=== PATIENT | male | born 1965 | race African-American/Black ===

== ENCOUNTER 2018-03-07 07:46 | Emergency (ER) | payer OTHER ==
[~2018-03-07] VITALS: Ht 177.8 cm; Wt 86.2 kg
[2018-03-07 07:50] VITALS: BP 132/94
[2018-03-07 09:01] VITALS: BP 132/94
== END 2018-03-07 09:00 | disposition home or self-care (01) ==
LOC: MED 07:46
DX: M79.642 Pain in left hand (principal); I10 Essential (primary) hypertension; F41.9 Anxiety disorder, unspecified; Z76.0 Encounter for issue of repeat prescription
CPT/HCPCS: 99283

== ENCOUNTER 2018-11-07 23:28 | Emergency (ER) | payer OTHER ==
[~2018-11-07] VITALS: Ht 177.8 cm; Wt 83.9 kg
--- NOTE | 2018-11-07 23:28 | NUR ---
PT [facility]. TAKEN TO BED 6
[2018-11-07 23:31] VITALS: BP 118/75
--- NOTE | 2018-11-07 23:35 | NUR ---
52/M PRESENTS TO ER AMBULATORY. AWAKE ALERT. C/O HEADACHE X3 DAYS NON PROVOKED PAIN 10/25. STATES HE GETS THEM OFTEN. HASN'T HAD ANYTHING TO EAT TODAY. DENIES TRUAMA INJURY, NO BLURRY VISION. NO N/V. HX OF ANXIETY, HTN, NEUROPATHY. RX LISINOPRIL 20, LORAZAPAM, GABAPENTIN, KEFLEX. EYES EQUAL AND REACTIVE. NO SIGS OF DISTRESS. WILL CONTINUE TO MONITOR.
--- NOTE | 2018-11-07 23:38 | NUR ---
Dr. Dawkins examining patient.
[2018-11-07] MEDS ORDERED: KETOROLAC 60 MG/2 ML VIAL IM ONE (23:45)
[2018-11-08 01:15] VITALS: BP 118/75
--- NOTE | 2018-11-08 01:15 | NUR ---
Patient discharged with v/s stable. Written and verbal after care instructions given and explained. Patient alert, oriented and verbalized understanding of instructions. Ambulatory with steady gait. All questions addressed prior to discharge. ID band removed. Patient advised to follow up with PMD. Rx of MOTRIN 800MG given. Patient educated on indication of medication including possible reaction and side effects. Opportunity to ask questions provided and answered. Given bus pass before departure.
== END 2018-11-08 01:15 | disposition home or self-care (01) ==
LOC: MED 23:28
DX: R51 Headache (principal); R42 Dizziness and giddiness; H53.149 Visual discomfort, unspecified; I10 Essential (primary) hypertension
CPT/HCPCS: 96372; 99283; J1885